=== PATIENT | male | born 1930 | race Caucasian/White ===

== ENCOUNTER 2016-10-26 14:35 | Outpatient (CLI) | payer MEDICARE, OTHER | END 2016-10-26 14:36 | disposition short-term general hospital (02) | LOC: EMS 14:35 | PROVIDERS: ATTEND Surgery | DX: M25.551 Pain in right hip (principal); S05.91XA Unspecified injury of right eye and orbit, initial encounter; W19.XXXA Unspecified fall, initial encounter; Y92.007 Garden or yard of unspecified non-institutional (private) residence as the place of occurrence of the external cause | CPT/HCPCS: A0425; A0429; A0888 ==